=== PATIENT | male | born 1975 | race Caucasian/White ===

== ENCOUNTER 2017-09-23 12:11 | Emergency (ER) | payer SELFPAY ==
[~2017-09-23] VITALS: Ht 172.7 cm; Wt 96.6 kg
[2017-09-23 12:16] VITALS: BP 140/76
--- NOTE | 2017-09-23 12:21 | NUR ---
PT AMBULATES BACK TO THE LOBBY
--- NOTE | 2017-09-23 15:16 | NUR ---
CALLED PT IN LOBBY, PT IS NOT HERE AT THIS TIME.
--- NOTE | 2017-09-23 17:30 | NUR ---
CALLED PATIENT TO OF NO ANSWER
== END 2017-09-23 17:30 | disposition left against medical advice (07) ==
LOC: MED 12:11
DX: R10.13 Epigastric pain (principal); R51 Headache; Z53.21 Procedure and treatment not carried out due to patient leaving prior to being seen by health care provider